=== PATIENT | female | born 1995 | race Two or more races ===

== ENCOUNTER → 2019-08-30 10:58 | Outpatient (CLI) | payer BC, SELFPAY ==
--- NOTE | ~2019-08-30 | XR_ITS ---
EXAMINATION: XR knee LT 3V DATE: 08/30/2019 11:15 INDICATION: Left knee pain TECHNIQUE: Weight bearing anteroposterior, sunrise, and flexed lateral views of the left knee were ob tained COMPARISON: None. FINDINGS: Alignment is normal. No fracture. No joint effusion/layering lipohemarthrosis. Soft tissues are unre markable. IMPRESSION: 1. Normal left knee radiographs. Reviewed, dictated and finalized at location A.
== END ==
PROVIDERS: PCP Internal Medicine; Visit Provider Internal Medicine
DX: M25.562 Pain in left knee (principal)
CPT/HCPCS: 73562

== ENCOUNTER 2020-09-11 16:01 | Observation (INO) | payer BC, SELFPAY ==
--- NOTE | ~2020-09-11 | US_ITS ---
EXAMINATION: US OB <= 14 weeks fetus DATE: 09/11/2020 20:02 INDICATION: Abdominal pain during first trimester TECHNIQUE: Real-time pelvic transabdominal ultrasound was performed. COMPARISON: None. FINDINGS: The uterus measures 9.2 x 5.6 x 6.7 cm. There is an intrauterine gestational sac. A yolk s ac is identified. heart motion is identified measuring 149 beats per minute (bpm) by M-mode Dop pler. The crown rump length measures 8 mm , which correlates with an estimated gestational age of 6 weeks and 5 day(s) (+/-) 4 day(s). The left ovary is not visualized however no left adnexal abnormality is seen. The right ovary measure s 2.8 x 1.4 x 1.8 cm. There is normal vascular flow in the right ovary. There is no free fluid in the pelvis. IMPRESSION: 1. Live intrauterine with an estimated gestational age of 6 weeks and 5 day(s) (+/-) 4 day( s) and an estimated delivery date of 05/02/2021. Reviewed, dictated and finalized at location A. IMPRESSION: 1. Live intrauterine with an estimated gestational age of 6 weeks and 5 day(s) (+/-) 4 day(s) and an estimated delivery date of 05/02/2021.
[2020-09-11 16:32] VITALS: BP 102/61; PULSE 64; RESP 16; TEMP 36.3; O2SAT 100
[2020-09-11 16:53] LABS: Basophils Percent Auto 0.2 % (0.2-1.2); Eosinophils Percent Auto 0.1 % (0-4.4); Hematocrit 38.4 % (37.0-47.0); Hemoglobin 13.1 g/dL (12.0-15.0); Immature Granulocyte Absolute 0.04 K/mm3 (0.00-0.031); Immature Granulocyte Percent A 0.5 % (0-0.5); Lymphocytes Percent Auto 19.2 % (18.3-44.2); Mean Corpuscular HGB Conc 34.1 g/dl (32-36); Mean Corpuscular Hemoglobin 32.3 pg (26-34); Mean Corpuscular Volume 94.8 fl (80-100); Monocytes Absolute Auto 0.6 K/mm3 (0.1-0.6); Monocytes Percent Auto 6.7 % (2.6-8.5); Neutrophils Absolute Auto 6.1 K/mm3 (1.3-6.7); Neutrophils Percent Auto 73.3 % (45.5-73.1); Platelet Count Result 294 k/mm3 (150-375); Red Blood Count 4.05 M/mm3 (4.2-5.4); White Blood Count 8.3 K/mm3 (4.5-10.0)
[2020-09-11 17:01] LABS: Alanine Aminotransferase 14 U/L (4-35); Albumin Level 4.8 g/dL (3.5-5.1); Alkaline Phosphatase 49 U/L (38-126); Anion Gap 9 mmol/L (8-16); Aspartate Amino Transferase 22 U/L (14-36); Bilirubin,Total 0.7 mg/dL (0.2-1.3); Blood Urea Nitrogen 7 mg/dL (7-17); Calcium 9.2 mg/dL (8.4-10.2); Carbon Dioxide 25 mmol/L (22-30); Chloride 103 mmol/L (98-107); Estimated CRCL calculation 117 ml/min; Estimated Glomerular Filt Rate > 60; Glucose 87 mg/dL (65-105); Lipase 715 U/L (23-300); Potassium 3.9 mmol/L (3.4-5.0); Sodium 137 mmol/L (137-145)
--- NOTE | 2020-09-11 19:14 | ED.NAVMDI ---
HPI - Nausea/Vomiting/Diarrhea General Chief complaint: Nausea/Vomiting/Diarrhea Stated complaint: / nausea/vomiting Time Seen by Provider: 09/11/20 19:03 Source: RN notes reviewed History of Present Illness HPI Narrative: Patient presents to emergency department from home for nausea vomiting. Patient states that she has had nausea and vomiting for the past week worsened over the past day. States she has had a history of nausea vomiting with and believes she is approximately 5 weeks with a home test at home. States she is followed by Dr. Mack. States she does have Zofran at home which she is taking with minimal relief she denies any fevers or chills chest pain shortness of breath diarrhea vaginal bleeding or discharge. States that she has not had an ultrasound. States that she does have some mild abdominal pain described as cramping with vomiting only Related Data Home Medications Medication Instructions Recorded Confirmed ondansetron 09/11/20 Allergies Allergy/AdvReac Type Severity Reaction Status Date / Time No Known Allergies Allergy Verified 09/11/20 16:36 Review of Systems Review of Systems: Narrative: Gen.: Denies fevers or chills ENT: Denies congestion Respiratory: Denies shortness of breath or cough CV: Denies chest pain or palpitations GI: See HPI reports Musculoskeletal: Denies back pain or muscle pain Neuro: Denies numbness, tingling, weakness or focal weakness Skin: Denies rash Except as documented, all other systems reviewed and negative [facility] Past Medical History Medical History (Updated 09/11/20 @ 22:29 by Jaya Foster DO) Patient denies significant medical history Social History Social History (Updated 09/11/20 @ 19:15 by Jaya Foster DO) Smoking status: Never smoker Exam Narrative: Exam Narrative: APPEARANCE: No acute distress, nontoxic, resting in bed EYES: EOMI HEENT: Normocephalic, atraumatic, OMM RESPIRATORY: No respiratory distress Clear to auscultation bilaterally with no rhonchi wheezing or rales. CARDIOVASCULAR: Regular rate and rhythm without murmurs rubs or gallops. ABDOMINAL: Soft, nontender, nondistended, no rebound or guarding MUSCULOSKELETAl: Moves all extremities. No clubbing, cyanosis or edema. NEURO: Awake and alert. Following commands, speech normal, no focal deficits SKIN:: Warm, dry. No rashes lesions or abrasions PSYCHIATRIC: Normal affect/mood, Course Course Emergency Course: Patient is feeling much better at this time. Repeat abdominal exam is soft and nontender. Patient able to drink in ED with no emesis Called and discussed with Dr. Clark presentation work-up agrees with plan for discharge to follow-up as an outpatient agrees with plan for Zofran tablets at discharge Patient states that they are feeling much better at this time. States abdominal pain has resolved. Repeat abdominal exam shows the patient's abdomen to be soft and nontender. Discussed with patient results of workup and diagnosis. Discussed need for follow-up with primary care physician, reasons to return to the emergency department in proper use of medication. Patient understands and agrees to current treatment plan patient has Zofran ODT tablets but states in the past that only the regular Zofran tablets of help Vital Signs Vital signs: Vital Signs Temperature 97.4 F L 09/11/20 16:32 Pulse Rate 64 09/11/20 16:32 Respiratory Rate 16 09/11/20 16:32 Blood Pressure 102/61 09/11/20 16:32 Pulse Oximetry 100 09/11/20 16:32 Temperature 97.4 F L 09/11/20 16:32 Pulse Rate 64 09/11/20 16:32 Respiratory Rate 16 09/11/20 16:32 Blood Pressure 102/61 09/11/20 16:32 Pulse Oximetry 100 09/11/20 16:32 MDM - Nausea/Vomiting/Diarrhea MDM Narrative Medical decision making narrative: Patient with nausea and vomiting with given fluids antiemetics in ED feeling better able to tolerate p.o. repeat abdom
[2020-09-11 19:25] LABS: Add Urine Microscopic? YES; Appearance Urine Cloudy (Clear); Bacteria Urine Trace /hpf; Bilirubin Urine Negative (Negative); Blood Urine 1+ (Negative); Color Urine Amber (Yellow); Glucose Urine UA Negative (Negative); Ketones Urine 2+ mg/dL (Negative); Leukocyte Esterase Ur Negative LEU/UL (Negative); Mucus Urine Heavy /lpf; Nitrate Urine Negative (Negative); Protein Urine 2+ mg/dL (Negative); Squamous Epithelial Cell Urine Moderate /hpf (Few); WBC Urine 0-3 /hpf
[2020-09-11] MEDS: SODIUM CHLORIDE 0.9% IV 1,000 ML 999 ML IV CONT ×3 (19:32→22:59)
[2020-09-11] MEDS: PROMETHAZINE HCL 25 MG/ML AMPUL 12.5 MG IV PUSH (19:32)
[2020-09-11 19:39] LABS: Specific Grav Ur 1.031 (1.001-1.035)
--- NOTE | 2020-09-11 19:57 | PC.NURSE ---
pt to ultrasound at this time
[2020-09-11] MEDS: ONDANSETRON INJ 4 MG/2 ML VIAL IV PUSH (20:28)
--- NOTE | 2020-09-11 21:37 | PC.NURSE ---
Pt given crackers and white soda for PO challenge.
[2020-09-11 22:40] VITALS: BP 90/62; PULSE 55; RESP 18; O2SAT 100
[2020-09-11 22:42] VITALS: BP 91/64; PULSE 66; RESP 16; O2SAT 100
[2020-09-11 22:43] VITALS: BP 68/39; PULSE 89; RESP 16; O2SAT 100
[2020-09-11 23:16] LABS: Lactic Acid Reflex 0.9 mmol/L (0.7-2.1)
[2020-09-11 23:56] VITALS: BP 96/55; PULSE 57; RESP 14; O2SAT 99
[2020-09-12 00:32] VITALS: BP 93/61; PULSE 60; RESP 14; O2SAT 100
--- NOTE | 2020-09-12 00:37 | OBADM ---
This patient, Deyanira Trevino, admitted to the OB room [facility] for observation. Patient/family oriented to hospital policies and general routines including ID bracelet, bed and alarms, visiting hours, pain management, procedures, bathroom and other care routines, personal items, smoking policy, room service/diet, and visiting hours. Patient/Family are encouraged to report perceived risks to care and to ask questions if they do not understand what they are told or what they should do.
[2020-09-12 00:46] VITALS: BP 103/49; PULSE 65; RESP 18; TEMP 36.9
[2020-09-12] MEDS: DEXTROSE 5%/0.45% SOD CHL 1,000 ML 150 ML IV CONT (01:13)
[2020-09-12] MEDS: ONDANSETRON INJ 4 MG/2 ML VIAL IV PUSH (01:13)
[2020-09-12 04:08] VITALS: BMI 26.6
[2020-09-12 07:34] VITALS: BP 112/89; PULSE 71
[2020-09-12 07:37] VITALS: TEMP 37.3
--- NOTE | 2020-09-12 11:19 | PM.OBTRLD ---
OB - Triage/Final Diagnosis Visit Information Comments/Additional reasons for admission: I have assessed the risk for this patient, Deyanira Trevino, and determined that she would benefit from observation care. Evaluation Laboratory results: Laboratory Tests 09/11/20 09/11/20 09/11/20 16:42 16:42 16:42 WBC 8.3 RBC 4.05 L Hgb 13.1 Hct 38.4 MCV 94.8 MCH 32.3 MCHC 34.1 RDW 12.0 Plt Count 294 MPV 10.0 Immature Gran % (Auto) 0.5 Neut % (Auto) 73.3 H Lymph % (Auto) 19.2 Stephens % (Auto) 6.7 Eos % (Auto) 0.1 Baso % (Auto) 0.2 Lymph # (Auto) 1.60 Stephens # (Auto) 0.6 Eos # (Auto) 0.0 Baso # (Auto) 0.0 Abs Immat Gran (auto) 0.04 H Absolute Neuts (auto) 6.1 Absolute Nucleated RBC 0.0 Nucleated RBC % 0.0 Sodium 137 Potassium 3.9 Chloride 103 Carbon Dioxide 25 Anion Gap 9 BUN 7 Creatinine 0.50 L Estim Creat Clear Calc 117 Estimated GFR > 60 Glucose 87 Lactic Acid Calcium 9.2 Total Bilirubin 0.7 AST 22 ALT 14 Alkaline Phosphatase 49 Total Protein 8.0 Albumin 4.8 Lipase 715 H Beta HCG, Quant 920711.00 Urine Color Urine Appearance Urine pH Ur Specific [place] Urine Protein Urine Glucose (UA) Urine Ketones Ur Blood (Man) Urine Nitrate Urine Bilirubin Urine Urobilinogen Leukocyte Esterase Rfl Urine RBC Urine WBC Ur Squamous Epith Cells Urine Bacteria Urine Mucus 09/11/20 09/11/20 19:16 22:56 WBC RBC Hgb Hct MCV MCH MCHC RDW Plt Count MPV Immature Gran % (Auto) Neut % (Auto) Lymph % (Auto) Stephens % (Auto) Eos % (Auto) Baso % (Auto) Lymph # (Auto) Stephens # (Auto) Eos # (Auto) Baso # (Auto) Abs Immat Gran (auto) Absolute Neuts (auto) Absolute Nucleated RBC Nucleated RBC % Sodium Potassium Chloride Carbon Dioxide Anion Gap BUN Creatinine Estim Creat Clear Calc Estimated GFR Glucose Lactic Acid 0.9 Calcium Total Bilirubin AST ALT Alkaline Phosphatase Total Protein Albumin Lipase Beta HCG, Quant Urine Color Traci Urine Appearance Cloudy H Urine pH 6.0 Ur Specific [place] 1.031 Urine Protein 2+ H Urine Glucose (UA) Negative Urine Ketones 2+ H Ur Blood (Man) 1+ H Urine Nitrate Negative Urine Bilirubin Negative Urine Urobilinogen 2.0 H Leukocyte Esterase Rfl Negative Urine RBC 11-20 H Urine WBC 0-3 Ur Squamous Epith Cells Moderate H Urine Bacteria Trace Urine Mucus Heavy H Vital signs: Vital Signs - 24 hr 09/11/20 16:32 09/11/20 22:40 09/11/20 22:42 Temperature 36.3 C L Pulse Rate 64 55 L 66 Respiratory Rate 16 18 16 Blood Pressure 102/61 90/62 L 91/64 L Pulse Oximetry 100 100 100 09/11/20 22:43 09/11/20 23:56 09/12/20 00:32 Temperature Pulse Rate 89 57 L 60 Respiratory Rate 16 14 14 Blood Pressure 68/39 L 96/55 L 93/61 L Pulse Oximetry 100 99 100 09/12/20 00:46 09/12/20 07:34 09/12/20 07:37 Temperature 36.9 C 37.3 C Pulse Rate 65 71 Respiratory Rate 18 Blood Pressure 103/49 L 112/89 Pulse Oximetry Final Diagnosis (1) Hyperemesis gravidarum: Code(s): O21.0 - Mild hyperemesis gravidarum Status: Acute
== END 2020-09-12 09:09 | disposition home or self-care (01) ==
LOC: ANHED 09-12 00:04 → ANHOBPP 09-12 03:59
PROVIDERS: Emergency Medicine; Admitting Provider Obstetrics & Gynecology; Emergency Provider Emergency Medicine; PCP Internal Medicine; Visit Provider Obstetrics & Gynecology
DX: O21.0 Mild hyperemesis gravidarum (principal); Z3A.01 Less than 8 weeks gestation of pregnancy
CPT/HCPCS: 36415; 76801; 80053; 81001; 81025; 83605; 83690; 84702; 85025; 96361; 96365; 96374; 96375; 96376; 99285; G0378; G0379; J0131; J2405; J2550; J7030